=== PATIENT | female | born 1955 | race Two or more races ===

== ENCOUNTER 2020-05-23 14:25 | Outpatient (CLI) | payer OTHER | END 2020-05-23 14:31 | disposition home or self-care (01) | LOC: LAB 14:25 | PROVIDERS: ATTEND Internal Medicine Gastroenterology | DX: D72.19 Other eosinophilia (principal); R19.5 Other fecal abnormalities ==

== ENCOUNTER 2021-02-03 15:20 | Outpatient (CLI) | payer OTHER | END 2021-02-03 15:25 | disposition home or self-care (01) | LOC: PPH VACUNA 15:20 | PROVIDERS: ATTEND Emergency Medicine Pediatric Emergency Medicine | DX: Z23 Encounter for immunization (principal) ==

== ENCOUNTER 2021-04-05 19:08 | Emergency (ER) | payer OTHER ==
[~2021-04-05] VITALS: Ht 157.5 cm; Wt 81.6 kg
== END 2021-04-06 00:44 | disposition home or self-care (01) ==
LOC: ER 19:08
DX: K52.9 Noninfective gastroenteritis and colitis, unspecified (principal)

== ENCOUNTER 2021-09-18 08:00 | Outpatient (CLI) | payer OTHER | END 2021-09-18 08:30 | disposition home or self-care (01) | LOC: PPH VACUNA 08:00 | PROVIDERS: ATTEND Emergency Medicine Pediatric Emergency Medicine | DX: Z23 Encounter for immunization (principal) ==